=== PATIENT | male | born 1935 | race Caucasian/White ===

== ENCOUNTER 2023-10-13 20:43 | Inpatient (IN) | payer MEDICARE, OTHER ==
[~2023-10-13] VITALS: Ht 175.3 cm; Wt 53.6 kg
[2023-10-13 21:21] LABS: BASOPHILS # (AUTO) 0.1 K/UL (0.0-0.2); BASOPHILS % (AUTO) 0.4 % (0.0-2.0); HEMATOCRIT 36.2 % (36.7-47.1); HEMOGLOBIN 12.1 g/dL (12.5-16.3); LYMPHOCYTES # (AUTO) 1.3 K/uL (0.8-4.8); LYMPHOCYTES % (AUTO) 6.2 % (20.5-51.5); MEAN CORPUSCULAR HEMOGLOBIN 30.9 uug (23.8-33.4); MEAN CORPUSCULAR HGB CONC 33 g/dL (32.5-36.3); MEAN CORPUSCULAR VOLUME 92.7 fL (73.0-96.2); MONOCYTES # (AUTO) 0.6 K/uL (0.1-1.30); MONOCYTES % (AUTO) 2.9 % (0.0-11.0); NEUTROPHILS % (AUTO) 90.5 % (38.5-71.5); PLATELET COUNT (AUTO) 128 K/uL (152-348); RED BLOOD CELL COUNT(AUTO) 3.91 MIL/uL (4.06-5.63); RED CELL DISTRIBUTION WIDTH 14.6 % (12.1-16.2)
[2023-10-13 21:24] LABS: DIFFERENTIAL COMMENT 1
[2023-10-13] MEDS ORDERED: MORPHINE SULFATE 2 MG/1 ML DISP.SYRIN IV PRN (21:30)
[2023-10-13] MEDS ORDERED: ACETAMINOPHEN 650 MG SUPP.RECT RC PRN (21:30)
[2023-10-13] MEDS ORDERED: ONDANSETRON 4 MG/2 ML VIAL IV PRN (21:30)
[2023-10-13] MEDS ORDERED: CHOL10005 PO (21:34)
[2023-10-13] MEDS ORDERED: MAGN400O6 PO (21:34)
[2023-10-13] MEDS ORDERED: TAMS-3 PO (21:34)
[2023-10-13] MEDS ORDERED: NA P133E RC (21:34)
[2023-10-13] MEDS ORDERED: CARB1TAB21 PO (21:34)
[2023-10-13] MEDS ORDERED: ACET-3117 PO (21:34)
[2023-10-13] MEDS ORDERED: BISA10SU61 RC (21:34)
[2023-10-13 21:36] LABS: ALBUMIN 2.8 g/dL (3.4-5.0); BILIRUBIN,TOTAL 1.4 mg/dL (0.2-1.0); CALCIUM 8.7 mg/dL (8.5-10.1); CREATININE 1.2 mg/dL (0.6-1.3); POTASSIUM 4.5 mmol/L (3.5-5.1); TOTAL PROTEIN, SERUM 6.7 g/dL (6.4-8.2)
[2023-10-13 21:40] LABS: LACTIC ACID 3.9 mmol/L (0.4-2.0)
[2023-10-13] MEDS: IV NS 1000 ML 1,000 ML IV ONE (22:07)
[2023-10-13] MEDS ORDERED: CEFTRIAXONE /D5W 50ML IVPB **ER PYXIS IV ONE (22:30)
[2023-10-13] MEDS: CEFTRIAXONE 1 G in IV DEXTROSE 5% 50 ML IV SCH (22:34)
[2023-10-14] VITALS (8 sets, daily range): BP systolic 95–130; BP diastolic 50–58; TEMP 97.8–98.8; O2SAT 94–100
[2023-10-14] MEDS: IV D5/ 0.9% NACL 1,000 ML IV PRN (02:53)
[2023-10-14 06:53] LABS: BASOPHILS % (AUTO) 0.1 % (0.0-2.0); HEMATOCRIT 33.2 % (36.7-47.1); HEMOGLOBIN 11.3 g/dL (12.5-16.3); LYMPHOCYTES # (AUTO) 0.6 K/uL (0.8-4.8); LYMPHOCYTES % (AUTO) 3.6 % (20.5-51.5); MEAN CORPUSCULAR HEMOGLOBIN 31.4 uug (23.8-33.4); MEAN CORPUSCULAR HGB CONC 34 g/dL (32.5-36.3); MONOCYTES # (AUTO) 0.6 K/uL (0.1-1.30); MONOCYTES % (AUTO) 3.7 % (0.0-11.0); NEUTROPHILS # (AUTO) 15.6 K/uL (1.8-8.9); NEUTROPHILS % (AUTO) 92.6 % (38.5-71.5); PLATELET COUNT (AUTO) 113 K/uL (152-348); RED BLOOD CELL COUNT(AUTO) 3.61 MIL/uL (4.06-5.63); RED CELL DISTRIBUTION WIDTH 14.3 % (12.1-16.2); WHITE BLOOD COUNT (AUTO) 16.8 K/uL (3.6-10.2)
[2023-10-14 07:02] LABS: THYROID STIMULATING HORMONE 2.601 mIU/mL (0.358-3.740)
[2023-10-14 07:04] LABS: IRON, SERUM 8 ug/dL (50-175)
[2023-10-14 07:45] LABS: ALANINE AMINOTRANSFERASE 11 U/L (16-63); ALBUMIN 2.3 g/dL (3.4-5.0); ALKALINE PHOSPHATASE 88 U/L (50-136); ASPARTATE AMINOTRANSFERASE 11 U/L (15-37); CALCIUM 7.9 mg/dL (8.5-10.1); CARBON DIOXIDE 28 mmol/L (21-32); CHLORIDE 103 mmol/L (98-107); CHOLESTEROL 98 mg/dL (<200); CREATININE 0.9 mg/dL (0.6-1.3); GLUCOSE 127 mg/dL (74-106); HDL CHOLESTEROL 38 mg/dL (40-60); MAGNESIUM 2.1 mg/dL (1.8-2.4); NT-PRO BNP 731 pg/mL (0-125); PHOSPHOROUS 2.6 mg/dL (2.5-4.9); POTASSIUM 3.7 mmol/L (3.5-5.1); SODIUM SERUM 137 mmol/L (136-145); TOTAL PROTEIN, SERUM 5.8 g/dL (6.4-8.2); TRIGLYCERIDES 40 MG/DL (30-150); UREA NITROGEN, BLOOD 25 mg/dL (7-18)
[2023-10-14 09:49] LABS: *BILIRUBIN,URIN NEGATIVE (NEGATIVE); *BLOOD, URINE 2+ (NEGATIVE); *CLARITY,URINE SLIGHTLY CLOUDY (CLEAR); *COLOR,URINE YELLOW (YELLOW); *KETONES,URINE NEGATIVE (NEGATIVE); *PROTEIN,URINE 2+ (NEGATIVE); LEUKOCYTE ESTERASE ,URINE 1+ (NEGATIVE); NITRITE, URINE POSITIVE (NEGATIVE); UGLUCOSE NEGATIVE (NEGATIVE)
[2023-10-14] MEDS: PANTOPRAZOLE SODIUM 40 MG VIAL IV SCH (10:25)
[2023-10-14] MEDS: ENOXAPARIN SODIUM 40 MG/0.4 ML DISP.SYRIN SQ SCH (10:26)
[2023-10-14] MEDS ORDERED: CARB1TAB39 PO (10:50)
[2023-10-14 10:52] LABS: BACTERIA,URINE MODERATE /HPF (NONE SEEN); SQUAMOUS EPITHELIAL CELL,UR FEW /HPF (NONE SEEN); WBC,URINE TNTC /HPF (0-3)
[2023-10-14] MEDS ORDERED: REMEDY ESSENTIAL ZINC PASTE 113 GM TOP PRN (12:00)
[2023-10-14] MEDS ORDERED: FLEET ENEMA 133 ML BOTTLE RC PRN (14:00)
[2023-10-14] MEDS: BISACODYL 10 MG SUPP.RECT RC PRN (17:26)
[2023-10-14] MEDS: REMEDY ESSENTIAL ZINC PASTE 113 GM TOP SCH (21:50)
[2023-10-14] MEDS ORDERED: CEFEPIME HCL 1 G VIAL ONE (22:01)
[2023-10-14] MEDS: CEFEPIME HCL 1 G in IV DEXTROSE 5% 50 ML IV SCH (22:42)
[2023-10-15 11:23] VITALS: BP 140/72; TEMP 97.7; O2SAT 98
[2023-10-15 13:50] VITALS: O2SAT 98
[2023-10-15 15:34] VITALS: BP 125/58; TEMP 97.6; O2SAT 97
[2023-10-15 19:00] VITALS: BP 143/72; O2SAT 98
[2023-10-15 20:52] VITALS: O2SAT 97
[2023-10-16 06:16] VITALS: BP 153/78; TEMP 98.1; O2SAT 97
[2023-10-16 07:09] LABS: BASOPHILS % (AUTO) 0.2 % (0.0-2.0); EOSINOPHILS % (AUTO) 1.1 % (0.0-7.0); HEMATOCRIT 33.8 % (36.7-47.1); HEMOGLOBIN 11.7 g/dL (12.5-16.3); LYMPHOCYTES % (AUTO) 9.9 % (20.5-51.5); MEAN CORPUSCULAR HEMOGLOBIN 31.5 uug (23.8-33.4); MEAN CORPUSCULAR HGB CONC 35 g/dL (32.5-36.3); MEAN CORPUSCULAR VOLUME 91.4 fL (73.0-96.2); MONOCYTES % (AUTO) 9.7 % (0.0-11.0); NEUTROPHILS # (AUTO) 4.5 K/uL (1.8-8.9); NEUTROPHILS % (AUTO) 79.1 % (38.5-71.5); PLATELET COUNT (AUTO) 115 K/uL (152-348); RED CELL DISTRIBUTION WIDTH 13.8 % (12.1-16.2); WHITE BLOOD COUNT (AUTO) 5.7 K/uL (3.6-10.2)
[2023-10-16 07:10] LABS: EOSINOPHILS # (AUTO) 0.1 K/uL (0.0-0.7); LYMPHOCYTES # (AUTO) 0.6 K/uL (0.8-4.8); MONOCYTES # (AUTO) 0.6 K/uL (0.1-1.30)
[2023-10-16 07:27] LABS: DIFFERENTIAL COMMENT 1
[2023-10-16 07:30] LABS: CARBON DIOXIDE 27 mmol/L (21-32); CHLORIDE 104 mmol/L (98-107); CREATININE 0.6 mg/dL (0.6-1.3); GLUCOSE 114 mg/dL (74-106); MAGNESIUM 1.9 mg/dL (1.8-2.4); POTASSIUM 3.3 mmol/L (3.5-5.1); SODIUM SERUM 139 mmol/L (136-145); UREA NITROGEN, BLOOD 11 mg/dL (7-18)
[2023-10-16 08:00] VITALS: BP 110/65; TEMP 98.4; O2SAT 100
[2023-10-16] MEDS: POTASSIUM PHOSPHATE MM 15 MMOL in IV NORMAL SALINE 250 ML IV ONE (10:26)
[2023-10-16] MEDS: CARBIDOPA/LEVODOPA CR 25-100MG TABLET.SA PO SCH (13:58)
[2023-10-16 17:56] VITALS: O2SAT 98
[2023-10-16 20:00] VITALS: BP 146/69; TEMP 98.1; O2SAT 96
[2023-10-16] MEDS: ATORVASTATIN 40 MG TABLET PO SCH (21:34)
[2023-10-16] MEDS: LORAZEPAM 2 MG/1 ML VIAL IV PRN (22:19)
[2023-10-17 07:29] LABS: BASOPHILS % (AUTO) 0.2 % (0.0-2.0); EOSINOPHILS # (AUTO) 0.1 K/uL (0.0-0.7); EOSINOPHILS % (AUTO) 2.5 % (0.0-7.0); HEMATOCRIT 37.1 % (36.7-47.1); HEMOGLOBIN 12.5 g/dL (12.5-16.3); LYMPHOCYTES # (AUTO) 0.6 K/uL (0.8-4.8); LYMPHOCYTES % (AUTO) 13.8 % (20.5-51.5); MEAN CORPUSCULAR HEMOGLOBIN 30.7 uug (23.8-33.4); MEAN CORPUSCULAR HGB CONC 34 g/dL (32.5-36.3); MEAN CORPUSCULAR VOLUME 91.1 fL (73.0-96.2); MONOCYTES # (AUTO) 0.6 K/uL (0.1-1.30); MONOCYTES % (AUTO) 12.3 % (0.0-11.0); NEUTROPHILS # (AUTO) 3.3 K/uL (1.8-8.9); NEUTROPHILS % (AUTO) 71.2 % (38.5-71.5); PLATELET COUNT (AUTO) 128 K/uL (152-348); RED BLOOD CELL COUNT(AUTO) 4.08 MIL/uL (4.06-5.63); RED CELL DISTRIBUTION WIDTH 14.1 % (12.1-16.2); WHITE BLOOD COUNT (AUTO) 4.7 K/uL (3.6-10.2)
[2023-10-17 07:35] LABS: DIFFERENTIAL COMMENT 1
[2023-10-17 07:45] LABS: ALANINE AMINOTRANSFERASE 9 U/L (16-63); ALBUMIN 2.5 g/dL (3.4-5.0); ALKALINE PHOSPHATASE 83 U/L (50-136); ASPARTATE AMINOTRANSFERASE 16 U/L (15-37); CALCIUM 8.3 mg/dL (8.5-10.1); CARBON DIOXIDE 28 mmol/L (21-32); CHLORIDE 103 mmol/L (98-107); CREATININE 0.7 mg/dL (0.6-1.3); GLUCOSE 108 mg/dL (74-106); MAGNESIUM 2.1 mg/dL (1.8-2.4); PHOSPHOROUS 2.7 mg/dL (2.5-4.9); POTASSIUM 3.2 mmol/L (3.5-5.1); SODIUM SERUM 139 mmol/L (136-145); TOTAL PROTEIN, SERUM 6.3 g/dL (6.4-8.2); UREA NITROGEN, BLOOD 8 mg/dL (7-18)
[2023-10-17 07:48] VITALS: BP 134/60; TEMP 98; O2SAT 97
[2023-10-17] MEDS: ASPIRIN 81 MG TAB.CHEW GT SCH (09:58)
[2023-10-17] MEDS: POTASSIUM CHLORIDE 20 MEQ TAB.PRT.SR PO ONE (12:50)
[2023-10-17 15:17] VITALS: BP 126/58; TEMP 98; O2SAT 96
[2023-10-17 15:53] VITALS: O2SAT 98
[2023-10-17] MEDS: GENTAMICIN SULFATE OPHT DROP 5 ML BOTTLE EACHEYE SCH (17:22)
[2023-10-17 20:00] VITALS: BP 148/82; TEMP 98.1; O2SAT 100
[2023-10-17 23:17] VITALS: O2SAT 98
[2023-10-18 05:00] VITALS: BP 148/91; TEMP 97.8; O2SAT 100
[2023-10-18] MEDS: CARBIDOPA/LEVODOPA 25-100MG TABLET PO SCH (05:36)
[2023-10-18 07:37] LABS: BASOPHILS % (AUTO) 0.4 % (0.0-2.0); EOSINOPHILS # (AUTO) 0.1 K/uL (0.0-0.7); EOSINOPHILS % (AUTO) 2.5 % (0.0-7.0); HEMATOCRIT 37.2 % (36.7-47.1); HEMOGLOBIN 12.8 g/dL (12.5-16.3); LYMPHOCYTES # (AUTO) 0.7 K/uL (0.8-4.8); LYMPHOCYTES % (AUTO) 12.6 % (20.5-51.5); MEAN CORPUSCULAR HEMOGLOBIN 31.3 uug (23.8-33.4); MEAN CORPUSCULAR HGB CONC 34 g/dL (32.5-36.3); MEAN CORPUSCULAR VOLUME 91.3 fL (73.0-96.2); MONOCYTES # (AUTO) 0.6 K/uL (0.1-1.30); MONOCYTES % (AUTO) 11.8 % (0.0-11.0); NEUTROPHILS % (AUTO) 72.7 % (38.5-71.5); PLATELET COUNT (AUTO) 138 K/uL (152-348); RED BLOOD CELL COUNT(AUTO) 4.08 MIL/uL (4.06-5.63); WHITE BLOOD COUNT (AUTO) 5.4 K/uL (3.6-10.2)
[2023-10-18 07:47] LABS: DIFFERENTIAL COMMENT 1
[2023-10-18 07:51] LABS: CALCIUM 8.4 mg/dL (8.5-10.1); CARBON DIOXIDE 29 mmol/L (21-32); CHLORIDE 104 mmol/L (98-107); CREATININE 0.7 mg/dL (0.6-1.3); GLUCOSE 106 mg/dL (74-106); MAGNESIUM 2.2 mg/dL (1.8-2.4); PHOSPHOROUS 2.2 mg/dL (2.5-4.9); POTASSIUM 3.3 mmol/L (3.5-5.1); SODIUM SERUM 138 mmol/L (136-145); UREA NITROGEN, BLOOD 11 mg/dL (7-18)
[2023-10-18 08:00] VITALS: BP 142/78; TEMP 97.2; O2SAT 100
[2023-10-18] MEDS: POTASSIUM PHOSPHATE MM 15 MMOL in IV NORMAL SALINE 250 ML IV ONE (10:28)
[2023-10-18 12:00] VITALS: BP 156/85; TEMP 97.6; O2SAT 98
[2023-10-18 16:02] VITALS: O2SAT 98
[2023-10-18 20:00] VITALS: BP 138/66; TEMP 98.1; O2SAT 94
[2023-10-18] MEDS: TEMAZEPAM 7.5 MG CAPSULE PO PRN (23:09)
[2023-10-19 01:30] VITALS: O2SAT 96
[2023-10-19 01:38] VITALS: O2SAT 98
[2023-10-19 04:00] VITALS: BP 135/51; TEMP 98.4; O2SAT 91
[2023-10-19 07:15] LABS: BASOPHILS % (AUTO) 0.3 % (0.0-2.0); EOSINOPHILS # (AUTO) 0.1 K/uL (0.0-0.7); EOSINOPHILS % (AUTO) 1.9 % (0.0-7.0); HEMATOCRIT 36.3 % (36.7-47.1); HEMOGLOBIN 12.6 g/dL (12.5-16.3); LYMPHOCYTES # (AUTO) 1.2 K/uL (0.8-4.8); LYMPHOCYTES % (AUTO) 23.3 % (20.5-51.5); MEAN CORPUSCULAR HEMOGLOBIN 31.4 uug (23.8-33.4); MEAN CORPUSCULAR HGB CONC 35 g/dL (32.5-36.3); MEAN CORPUSCULAR VOLUME 90.6 fL (73.0-96.2); MONOCYTES # (AUTO) 0.6 K/uL (0.1-1.30); MONOCYTES % (AUTO) 11.9 % (0.0-11.0); NEUTROPHILS # (AUTO) 3.3 K/uL (1.8-8.9); NEUTROPHILS % (AUTO) 62.6 % (38.5-71.5); PLATELET COUNT (AUTO) 161 K/uL (152-348); RED BLOOD CELL COUNT(AUTO) 4.01 MIL/uL (4.06-5.63); RED CELL DISTRIBUTION WIDTH 13.9 % (12.1-16.2); WHITE BLOOD COUNT (AUTO) 5.2 K/uL (3.6-10.2)
[2023-10-19 07:33] LABS: ALBUMIN 2.7 g/dL (3.4-5.0); BILIRUBIN,TOTAL 0.9 mg/dL (0.2-1.0); CALCIUM 8.8 mg/dL (8.5-10.1); CREATININE 0.7 mg/dL (0.6-1.3); PHOSPHOROUS 2.5 mg/dL (2.5-4.9); POTASSIUM 3.9 mmol/L (3.5-5.1); TOTAL PROTEIN, SERUM 6.9 g/dL (6.4-8.2)
[2023-10-19 07:43] LABS: DIFFERENTIAL COMMENT 1
[2023-10-19] MEDS ORDERED: CEFEPIME HCL 1 G in IV DEXTROSE 5% 50 ML IV SCH (09:30)
[2023-10-19 11:56] VITALS: BP 118/57; TEMP 97.7; O2SAT 96
[2023-10-19] MEDS: CEFEPIME HCL 1 G in IV DEXTROSE 5% 50 ML IV SCH (13:22)
[2023-10-19 16:00] VITALS: BP 157/81; TEMP 97.6; O2SAT 97
[2023-10-19 19:40] VITALS: BP 125/65; TEMP 98.2; O2SAT 94
[2023-10-20 06:24] VITALS: BP 143/71; TEMP 97.7; O2SAT 96
[2023-10-20] MEDS: PANTOPRAZOLE SODIUM 40 MG TABLET.DR PO SCH (06:52)
[2023-10-20 12:00] VITALS: BP 140/66; TEMP 97.6; O2SAT 98
[2023-10-20 16:00] VITALS: BP 144/64; TEMP 98.2; O2SAT 97
[2023-10-20] MEDS: CEFEPIME HCL 1 G in IV DEXTROSE 5% 50 ML IV SCH (17:33)
[2023-10-20 20:12] VITALS: O2SAT 97
[2023-10-20 20:35] VITALS: BP 119/63; TEMP 97.4; O2SAT 96
[2023-10-21 06:31] VITALS: BP 116/68; TEMP 97.6; O2SAT 96
[2023-10-21 07:13] LABS: BASOPHILS % (AUTO) 0.3 % (0.0-2.0); EOSINOPHILS # (AUTO) 0.1 K/uL (0.0-0.7); EOSINOPHILS % (AUTO) 2.7 % (0.0-7.0); HEMATOCRIT 34.1 % (36.7-47.1); HEMOGLOBIN 11.7 g/dL (12.5-16.3); LYMPHOCYTES % (AUTO) 18.7 % (20.5-51.5); MEAN CORPUSCULAR HGB CONC 34 g/dL (32.5-36.3); MEAN CORPUSCULAR VOLUME 90.4 fL (73.0-96.2); MONOCYTES # (AUTO) 0.5 K/uL (0.1-1.30); MONOCYTES % (AUTO) 10.5 % (0.0-11.0); NEUTROPHILS # (AUTO) 3.5 K/uL (1.8-8.9); NEUTROPHILS % (AUTO) 67.8 % (38.5-71.5); PLATELET COUNT (AUTO) 184 K/uL (152-348); RED BLOOD CELL COUNT(AUTO) 3.77 MIL/uL (4.06-5.63); RED CELL DISTRIBUTION WIDTH 13.8 % (12.1-16.2); WHITE BLOOD COUNT (AUTO) 5.2 K/uL (3.6-10.2)
[2023-10-21 07:28] LABS: CALCIUM 8.2 mg/dL (8.5-10.1); CARBON DIOXIDE 30 mmol/L (21-32); CHLORIDE 103 mmol/L (98-107); CREATININE 0.6 mg/dL (0.6-1.3); GLUCOSE 120 mg/dL (74-106); PHOSPHOROUS 2.1 mg/dL (2.5-4.9); POTASSIUM 3.3 mmol/L (3.5-5.1); SODIUM SERUM 139 mmol/L (136-145); UREA NITROGEN, BLOOD 15 mg/dL (7-18)
[2023-10-21 07:46] LABS: DIFFERENTIAL COMMENT 1
[2023-10-21 11:48] VITALS: BP 144/60; TEMP 98; O2SAT 97
[2023-10-21] MEDS: POTASSIUM CHLORIDE 10 MEQ TAB.PRT.SR PO ONE (13:07)
[2023-10-21 16:00] VITALS: BP 157/70; TEMP 97.4; O2SAT 95
[2023-10-21] MEDS: NEUTRA PHOS PACKET PO ONE (16:11)
[2023-10-21 20:00] VITALS: BP 144/94; TEMP 97.7; O2SAT 95
[2023-10-22 06:00] VITALS: BP 142/77; TEMP 98.4; O2SAT 97
[2023-10-22 07:49] LABS: BASOPHILS % (AUTO) 0.3 % (0.0-2.0); EOSINOPHILS % (AUTO) 0.8 % (0.0-7.0); HEMATOCRIT 35.2 % (36.7-47.1); HEMOGLOBIN 12.1 g/dL (12.5-16.3); LYMPHOCYTES # (AUTO) 0.9 K/uL (0.8-4.8); LYMPHOCYTES % (AUTO) 14.1 % (20.5-51.5); MEAN CORPUSCULAR HEMOGLOBIN 31.1 uug (23.8-33.4); MEAN CORPUSCULAR HGB CONC 35 g/dL (32.5-36.3); MONOCYTES # (AUTO) 0.5 K/uL (0.1-1.30); MONOCYTES % (AUTO) 8.1 % (0.0-11.0); NEUTROPHILS # (AUTO) 4.7 K/uL (1.8-8.9); NEUTROPHILS % (AUTO) 76.7 % (38.5-71.5); PLATELET COUNT (AUTO) 223 K/uL (152-348); RED BLOOD CELL COUNT(AUTO) 3.91 MIL/uL (4.06-5.63); RED CELL DISTRIBUTION WIDTH 14.1 % (12.1-16.2); WHITE BLOOD COUNT (AUTO) 6.1 K/uL (3.6-10.2)
[2023-10-22 07:56] LABS: DIFFERENTIAL COMMENT 1
[2023-10-22 07:59] VITALS: BP 138/84; TEMP 98; O2SAT 97
[2023-10-22 08:10] LABS: CARBON DIOXIDE 33 mmol/L (21-32); CHLORIDE 103 mmol/L (98-107); CREATININE 0.7 mg/dL (0.6-1.3); GLUCOSE 106 mg/dL (74-106); MAGNESIUM 1.9 mg/dL (1.8-2.4); PHOSPHOROUS 2.4 mg/dL (2.5-4.9); POTASSIUM 3.7 mmol/L (3.5-5.1); SODIUM SERUM 139 mmol/L (136-145); UREA NITROGEN, BLOOD 10 mg/dL (7-18)
[2023-10-22 08:50] LABS: CALCIUM 8.7 mg/dL (8.5-10.1)
[2023-10-22 15:26] VITALS: BP 132/63; TEMP 97.7; O2SAT 97
[2023-10-22] MEDS: NEUTRA PHOS PACKET PO ONE (17:37)
== END 2023-10-22 18:20 | DRG 871 ==
LOC: ER 20:49 → TELE3 21:40 → MEDSURG3 10-14 09:17
PROVIDERS: ADMIT Internal Medicine; ATTEND Nurse Practitioner Family
PROC: 05HC33Z Insertion of Infusion Device into Left Basilic Vein, Percutaneous Approach (ICD-10-PCS; principal; 2023-10-15)
PROC: B54NZZA Ultrasonography of Left Upper Extremity Veins, Guidance (ICD-10-PCS; 2023-10-15)
PROC: 05HB33Z Insertion of Infusion Device into Right Basilic Vein, Percutaneous Approach (ICD-10-PCS; 2023-10-19)
PROC: B54MZZA Ultrasonography of Right Upper Extremity Veins, Guidance (ICD-10-PCS; 2023-10-19)
DX: A41.9 Sepsis, unspecified organism (principal); E43 Unspecified severe protein-calorie malnutrition; G92.8 Other toxic encephalopathy; N17.0 Acute kidney failure with tubular necrosis; J69.0 Pneumonitis due to inhalation of food and vomit; D68.59 Other primary thrombophilia; N39.0 Urinary tract infection, site not specified; I67.82 Cerebral ischemia; Z68.1 Body mass index [BMI] 19.9 or less, adult; G20.A1 Parkinson's disease without dyskinesia, without mention of fluctuations; R62.7 Adult failure to thrive; I51.7 Cardiomegaly; Z74.09 Other reduced mobility; M48.02 Spinal stenosis, cervical region; N40.1 Benign prostatic hyperplasia with lower urinary tract symptoms; R13.10 Dysphagia, unspecified; I67.2 Cerebral atherosclerosis; Z90.79 Acquired absence of other genital organ(s); Z20.822 Contact with and (suspected) exposure to COVID-19; M50.30 Other cervical disc degeneration, unspecified cervical region; G20.B1 Parkinson's disease with dyskinesia, without mention of fluctuations; R93.1 Abnormal findings on diagnostic imaging of heart and coronary circulation
CPT/HCPCS: 36415; 70450; 71045; 82747; 83550; 83605; 83735; 83921; 84100; 84443; 84484; 85014; 85025; 85610; 87040; 93307; A4606; A4663; A6209; A6213; C9113; G0378; J0692; J0696; J1650; J2060; J3490; J7040; J7042; J7070